=== PATIENT | male | born 1960 | race Caucasian/White ===

== ENCOUNTER 2016-03-17 18:39 | Emergency (ER) | payer MEDICAID ==
--- NOTE | 2016-03-17 19:35 | CT ---
HEAD CT WITHOUT CONTRAST HISTORY: Status post fall. Laceration. No intravenous contrast administered. Contiguous axial images acquired from skull base to vertex. COMPARISON:None. BRAIN VOLUME:Grossly unremarkable for patient age. VENTRICULAR SIZE:No gross ventriculomegaly. FOCAL MASS EFFECT:None. ACUTE INTRACRANIAL HEMORRHAGE:None. CALVARIUM:Grossly intact. Evidence of scalp injury at the high left parietal aspect. VISIBLE PARANASAL SINUSES AND MASTOID AIR CELLS:Grossly clear. IMPRESSION: Evidence of left parietal scalp injury. No gross mass effect, depressed calvarial fracture, or acute intracranial hemorrhage. Results were electronically transmitted to the electronic medical record at 03/17/2016 at 1932 hours.
== END 2016-03-17 20:44 | disposition home or self-care (01) ==
LOC: ED 18:39
DX: S01.01XA Laceration without foreign body of scalp, initial encounter (principal); S09.90XA Unspecified injury of head, initial encounter; W10.9XXA Fall (on) (from) unspecified stairs and steps, initial encounter; Y92.9 Unspecified place or not applicable